=== PATIENT | male | born 1980 ===

== ENCOUNTER 2024-01-12 08:00 | Outpatient (CLI) | payer OTHER ==
--- NOTE | 2024-01-13 08:18 | XRAY Report ---
PROCEDURE: Chest 2V INDICATIONS: ACUTE COUGH TECHNIQUE: 2 views of the chest were acquired. COMPARISON: None. FINDINGS: Surgical changes and devices: None. Lungs and pleura: No pleural effusions or pneumothorax. Lungs are clear. Mediastinum: Mediastinal contours appear normal. Heart size is normal. Bones and chest wall: No suspicious bony lesions. Overlying soft tissues appear unremarkable. IMPRESSION: No acute cardiopulmonary process. Reviewed by: Kee Knox MD on 01/13/2024 8:17 AM PDT Approved by: Kee Knox MD on 01/13/2024 8:17 AM PDT Station ID: [id number]
== END 2024-01-12 23:59 | disposition home or self-care (01) ==
LOC: DI.S 08:00
PROVIDERS: ATTEND Internal Medicine
DX: R05.1 Acute cough (principal)

== ENCOUNTER 2024-07-08 08:00 | Outpatient (CLI) | payer OTHER ==
--- NOTE | 2024-07-09 07:01 | XRAY Report ---
PROCEDURE: Hand 3+V LT INDICATIONS: LEFT HAND PUNCTURE WOUND/FB TECHNIQUE: 3 views of the hand(s) acquired. COMPARISON: None. FINDINGS: Bones: No fractures or dislocations. No suspicious bony lesions. 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 Scattered DIP joint osteoarthritis. Soft tissues: No suspicious soft tissue calcifications or masses. 0.9 cm cylindrical radiopaque ob ject at the 1st webspace between the 1st and 2nd digits, flanked by radiopaque markers. IMPRESSION: 1.0.9 cm cylindrical radiopaque object at the 1st web space. 2.No fracture or dislocation. Reviewed by: Jerry Mendoza MD on 07/09/2024 6:59 AM PDT Approved by: Jerry Mendoza MD on 07/09/2024 6:59 AM PDT Station ID: [id number]
== END 2024-07-08 23:59 | disposition home or self-care (01) ==
LOC: DI.S 08:00
PROVIDERS: ATTEND Emergency Medicine
DX: S61.442A Puncture wound with foreign body of left hand, initial encounter (principal)